=== PATIENT | male | born 1985 | race Caucasian/White ===

== ENCOUNTER 2025-05-15 17:16 | Emergency (ER) | payer SELFPAY ==
[~2025-05-15] VITALS: Ht 175.3 cm; Wt 59.1 kg
[2025-05-15 17:39] VITALS: BP 119/78; PULSE 96; RESP 18; O2SAT 98
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
[2025-05-15] MEDS ORDERED: DICL100G60 TOP (20:18)
[2025-05-15 20:43] VITALS: TEMP 97.9
== END 2025-05-15 20:44 | disposition home or self-care (01) ==
LOC: ER 17:17
DX: M54.50 Low back pain, unspecified (principal); V43.52XA Car driver injured in collision with other type car in traffic accident, initial encounter; Y93.89 Activity, other specified; Y92.89 Other specified places as the place of occurrence of the external cause; Y99.8 Other external cause status
CPT/HCPCS: 72100; 99283